=== PATIENT | male | born 1950 | race Caucasian/White ===

== ENCOUNTER 2018-08-28 09:07 | Emergency (ER) | payer BC ==
[2018-08-28 09:20] VITALS: BP 149/86
--- NOTE | 2018-08-28 10:13 | UC ---
Lower Extremity/Ankle HPI - HPI Summary HPI Summary: Pt presents to for evaluation of injury to left foot. Pt states yesteday was unloading lawn tractor from trailer. the trailer tilted and tractor landed on left foot. No other injuries. No knee or hip pain. Pt denies paresthesia. Pt took Motrin yesterday. No analgesia today. Pt with pain with weightbearing - little pain with rest. Pt with abraison medial aspect left foot. No active bleeding. mild bruising at side of abraison. Pt does not know when last tdap. Medications reviewed - History of Current Complaint Chief Complaint: UCLowerExtremity Stated Complaint: LT FOOTINJURY Time Seen by Provider: 08/28/18 09:59 Hx Obtained From: Patient Severity Currently: Moderate - with ambulation = 8, rest=2 Pain Intensity: 8 - Allergies/Home Medications Allergies/Adverse Reactions: Allergies Allergy/AdvReac Type Severity Reaction Status Date / Time No Known Allergies Allergy Verified 08/28/18 09:20 Home Medications: Home Medications Ibuprofen 600 mg PO 08/28/18 [History] PMH/Surg Hx/FS Hx/Imm Hx Previously Healthy: Yes Cardiovascular History: Hypertension - Surgical History Surgical History: Yes Surgery Procedure, Year, and Place: tonsillectomy in childhood - Family History Known Family History: Positive: Hypertension, Non-Contributory - Social History Occupation: Retired Lives: With Family Alcohol Use: Daily Substance Use Type: None Smoking Status (MU): Light Every Day Tobacco Smoker Type: Cigarettes Review of Systems All Other Systems Reviewed And Are Negative: Yes Constitutional: Positive: Negative Skin: Positive: Bruising, Other - abraison left foot Musculoskeletal: Positive: Other: - left foot Neurological: Negative: Paresthesia, Numbness Physical Exam - Summary Physical Exam Summary: Vital Signs Reviewed: Yes AOx3, no distress, Eyes: Conjunctiva Clear ENT: Hearing grossly normal Neck: Positive: Supple Respiratory: Positive: No respiratory distress, No accessory muscle use Cardiovascular: 2+ DP, PT CBt < 2 sec Musculoskeletal Exam: + flex/ext knee, ankle + TTP base 1st MT no crepituse + abraison and ecchymosis at same. No pain ankle, tarsals, other metatarsals Neurological: Positive: Alert, + sensation throughout + gross sensation throughout Psychological: Positive: Normal Response To Family Skin: Positive: no rash, no ecchymosis, non suturable Triage Information Reviewed: Yes Vital Signs: Initial Vital Signs Temp 100.0 F 08/28/18 09:15 Pulse 95 08/28/18 09:15 Resp 18 08/28/18 09:15 BP 149/86 08/28/18 09:15 Pulse Ox 95 08/28/18 09:15 Diagnostics - Radiology No standard instances Radiology Interpretation Completed By: Radiologist - Patient Name: JASON VALLECILLO Medical Record#: [id number] Ordering Physician: Abbi Ramirez NP Acct.#: [id number] : 1950 Age: 67 Sex: M Location: [facility] Exam Date: 08/28/18929 ADM Status: REG ER Order Information: FOOT LEFT 3+ VWS Accession Number: [id number] CPT: 71546 HISTORY: pain after injury . COMPARISONS: None relevant available at the time of dictation. VIEWS: 3, Frontal, lateral, and oblique views of the left foot FINDINGS: BONE DENSITY: Normal. BONES: There is a chronic fracture versus accessory ossicle of the base of the fifth metatarsal. There are plantar calcaneal enthesophytes. 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 ALIGNMENT: There is no dislocation. SOFT TISSUES: Unremarkable. OTHER FINDINGS: None. IMPRESSION: CHRONIC FRACTURE VERSUS HISTORY OSSICLE OF THE BASE OF THE FIFTH METATARSAL. NO ACUTE OSSEOUS INJURY. IF SYMPTOMS PERSIST, RECOMMEND REPEAT IMAGING <Electronically signed by Patrice Young MD in OV> 08/28/18948 Dictated By: Patrice Young MD Dictated Date/Time: 08/28/18948 Transcribed Date/Time: 08/28/18947 Copy to: CC:[facility]; Abbi Ramirez NP; Bel Argueta MD Imaging - [facility] - [facility] - [facility] [address] [address] ph ([phone]) ph ([phone]) ph ([phone]) This report is only to be considered final once signed by the Provider(s ) as displayed in the "<Electronically Signed by >" field (s). Absence of a signature indicates the report is in a draft status and still needs to be finalized. In the event this document was created by someone other than the signing Provider, the individual initiating the document will be listed in the "Entered by:" or "Dictated by:" ceja. Re-Evaluation - Re-Evaluation First Eval Comment: reviewed imaging - no pain over base 5th MT as noted on imaging Lower Extremity Course/Dx - Course Course Of Treatment: Pt with pain with palpapation, walking, abaison, and ecchymosis base 5th MT left foot after lawnmower landed on it yesterday. No other injuries No analgesia today VSS no crepitus will image hard sole shoe motrin/apap ice elevate crutches (pt has) wound care pt declined tdap today Pt's BP elevated - h/o diagnosis - Differential Dx/Diagnosis Provider Diagnosis: Contusion of left foot Discharge - Sign-Out/Discharge Documenting (check all that apply): Patient Departure All imaging exams completed and their final reports reviewed: Yes - Discharge Plan Condition: Stable Disposition: HOME Patient Education Materials: Foot Contusion (ED) Referrals: Bel Argueta MD [Primary Care Provider] - [facility] [Provider Group] Additional Instructions: -apply ice (20 min at a time) every 2-3 hours for the next 2 days -use crutches until you can walk normally without a limp -Elevate your leg - this will help with swelling and pain - Alternate ibuprofen (advil, Motrin) 600mg and tylenol every 3 hours for pain. Take with food. Do NOT take for more than 4-5 days -Contact your doctor to schedule a follow-up this week. If you are unable to see your primary doctor, you may schedule a follow-up with the sports medicine group - Billing Disposition and Condition Condition: STABLE Disposition: Home
== END 2018-08-28 10:21 | disposition home or self-care (01) ==
LOC: UCEAST 09:07
DX: S90.32XA Contusion of left foot, initial encounter (principal); F17.210 Nicotine dependence, cigarettes, uncomplicated; X58.XXXA Exposure to other specified factors, initial encounter; Y92.9 Unspecified place or not applicable
CPT/HCPCS: 99211; G0463

== ENCOUNTER 2020-12-09 20:28 | Observation (INO) ==
[2020-12-09 20:54] LABS: ABS Eosinophils 0.1 10^3/ul (0-0.6); ABS Monocytes 0.6 10^3/ul (0-0.8); ABS Neutrophils 4.4 10^3/ul (1.5-7.7); Eosinophil % 0.9 %; Hematocrit 43 % (42-52); Hemoglobin 14.7 g/dL (14.0-18.0); Lymphocyte % 28.5 %; Mean Corpuscular HGB Conc 34 g/dL (31-36); Mean Corpuscular Hemoglobin 34 pg (27-31); Mean Corpuscular Volume 98 fL (80-94); Mean Platelet Volume 8.3 fL (7.4-10.4); Platelet Count 202 10^3/uL (150-450); Red Blood Count 4.36 10^6 /uL (4.18-5.48); Red Cell Distribution Width 14 % (10-15); White Blood Count 7.1 10^3/uL (3.5-10.8)
[2020-12-09 21:05] LABS: INR 0.97 (0.86-1.15)
[2020-12-09 21:11] LABS: Albumin 4.3 g/dL (3.2-5.2); Albumin/Globulin Ratio 1.6 (1-3); Calcium 9.6 mg/dL (8.6-10.3); EGFR African American 77.3 (>60); EGFR Non-African American 63.9 (>60); Globulin 2.7 g/dL (2-4); Potassium 4.3 mmol/L (3.5-5.0); Total Bilirubin 0.4 mg/dL (0.2-1.0)
[2020-12-09 21:14] LABS: Troponin I 0.01 ng/mL (<0.03)
[2020-12-10] MEDS ORDERED: hydrALAZINE 20 mg/ml 1 ML Vial IV IV SLOW PU PRN (02:37)
[2020-12-10] MEDS ORDERED: Enoxaparin 40 MG/0.4 ML SYR SUBCUT SCH (03:00)
[2020-12-10] MEDS ORDERED: SPIRIVA Respimat (tiotropium) 2.5 mcg/inh Inhaler INH SCH ×2 (09:00)
[2020-12-10 14:34] VITALS: BP 173/87
== END 2020-12-10 15:39 | disposition home or self-care (01) ==
LOC: ED 20:28 → SUATTDRO 12-10 01:42 → INTOOBSV 12-10 01:42 → MEDTELE 12-10 01:42
PROVIDERS: ADMIT Student in an Organized Health Care Education/Training Program; ATTEND Internal Medicine

== ENCOUNTER 2024-01-09 10:28 | Inpatient (IN) ==
[2024-01-09 10:58] LABS: ABS Basophils 0.1 10^3/uL (0.0-0.1); ABS Eosinophils 0.2 10^3/uL (0.0-0.5); ABS Lymphocytes 1.9 10^3/uL (1.0-4.8); ABS Monocytes 0.6 10^3/uL (0.0-1.1); ABS Neutrophils 6.2 10^3/uL (1.5-7.6); Eosinophil % 1.8 %; Hemoglobin 11.5 g/dL (13.2-16.3); Lymphocyte % 21.8 %; Mean Corpuscular Hemoglobin 31.3 pg (27-33); Mean Corpuscular Hgb Conc 31.9 g/dL (31-36); Mean Corpuscular Volume 98.3 fL (80-97); Mean Platelet Volume 7.7 fL (7.5-11.2); Platelet Count 240 10^3/uL (150-450); Red Blood Count 3.66 10^6/uL (4.06-5.63); Red Cell Distribution Width 17.2 % (12-17); White Blood Count 8.9 10^3/uL (3.6-10.2)
[2024-01-09 11:29] LABS: INR 1.13 (0.85-1.14)
[2024-01-09 11:49] LABS: Albumin 4.3 g/dL (3.2-5.2); Albumin/Globulin Ratio 1.7 (1-3); Calcium 9.2 mg/dL (8.6-10.3); Creatinine, Serum 0.91 mg/dL (0.67-1.17); Globulin 2.6 g/dL (2-4); Potassium 4.7 mmol/L (3.5-5.0); Total Bilirubin 0.5 mg/dL (0.2-1.0); Total Protein 6.9 g/dL (6.4-8.9); eGFR CKD-EPI 90.1 (>60)
[2024-01-09 12:25] LABS: High Sensitivity Troponin 1 Hr 30 pg/mL (<20)
[2024-01-09] MEDS: Iodixanol (CONTRAST) 320 MG/ML 100 ML SDV IV ONE (13:27)
[2024-01-09] MEDS: Albuterol/Ipratropium NEB.SOL (2.5/0.5 MG) 3 ML NEB.SOLN INH ONE (15:44)
[2024-01-09] MEDS: Heparin 5000 UNITS/ML 1 mL VIAL SUBCUT ONE (20:01)
[2024-01-10] MEDS: Levalbuterol HFA INHALER MDI INH PRN (04:00)
[2024-01-10 07:01] LABS: Total Protein 6.1 g/dL (6.4-8.9)
[2024-01-10] MEDS: SPIRIVA Respimat (tiotropium) 2.5 mcg/inh Inhaler INH SCH (07:14)
[2024-01-10] MEDS ORDERED: Albuterol/Ipratropium NEB.SOL (2.5/0.5 MG) 3 ML NEB.SOLN INH PRN (07:19)
[2024-01-10] MEDS: Multivitamins/Minerals TAB PO SCH (09:16)
[2024-01-10] MEDS: Sulfur Hexaflouride MICROSPHR 25 MG VIAL IV PRN (09:18)
[2024-01-10 20:36] LABS: C Reactive Protein 8.19 mg/L (<8.01)
[2024-01-10] MEDS: Enoxaparin 80 MG/0.8 ML SYR SUBCUT SCH (20:42)
[2024-01-10] MEDS: Adenosine 3 MG/ML 2 ml VIAL (6 mg) IV PUSH ONE ×2 (23:13)
[2024-01-11] MEDS: dilTIAZem 30 MG TAB PO SCH (00:27)
[2024-01-11 08:45] LABS: ABS Basophils 0.1 10^3/uL (0.0-0.1); ABS Eosinophils 0.1 10^3/uL (0.0-0.5); ABS Lymphocytes 1.5 10^3/uL (1.0-4.8); ABS Monocytes 0.4 10^3/uL (0.0-1.1); ABS Neutrophils 4.9 10^3/uL (1.5-7.6); Eosinophil % 1.5 %; Hematocrit 34.3 % (38-53); Hemoglobin 11.2 g/dL (13.2-16.3); Lymphocyte % 21.4 %; Mean Corpuscular Hemoglobin 31.6 pg (27-33); Mean Corpuscular Hgb Conc 32.6 g/dL (31-36); Mean Corpuscular Volume 96.8 fL (80-97); Mean Platelet Volume 7.5 fL (7.5-11.2); Platelet Count 243 10^3/uL (150-450); Red Blood Count 3.54 10^6/uL (4.06-5.63); Red Cell Distribution Width 16.9 % (12-17)
[2024-01-11 09:27] LABS: Calcium 9.1 mg/dL (8.6-10.3); Creatinine, Serum 0.84 mg/dL (0.67-1.17); Magnesium 1.6 mg/dL (1.9-2.7); Potassium 4.6 mmol/L (3.5-5.0); eGFR CKD-EPI 93.2 (>60)
[2024-01-11] MEDS: Digoxin IV 0.5 MG/2 ML AMP (0.25 MG/ML) IV SLOW PU ONE ×3 (11:04→15:05)
[2024-01-11 11:24] LABS: Activated Partial Thrombo Time 39.7 seconds (26.0-38.0); INR 1.21 (0.85-1.14)
[2024-01-11] MEDS: Magnesium Sulf 4 GM/100 ML IV 4,000 MG/100 ML BAG IVPB ONE (11:40)
[2024-01-11] MEDS: Polyethylene Glycol 3350 17 GM PACKET PO PRN (12:46)
[2024-01-12] MEDS: NS 0.9% 1000 ml BAG 1,000 ML IV SCH (07:31)
[2024-01-12 07:37] LABS: Calcium 8.7 mg/dL (8.6-10.3); Creatinine, Serum 0.85 mg/dL (0.67-1.17); Magnesium 1.8 mg/dL (1.9-2.7); Potassium 4.5 mmol/L (3.5-5.0); eGFR CKD-EPI 92.9 (>60)
[2024-01-12] MEDS ORDERED: Flumazenil 0.5 mg/5 ml 0.1 MG/ML 5 ml VIAL ONE (08:34)
[2024-01-12] MEDS ORDERED: Naloxone 0.4 mg VIAL 0.4 mg/ml 1 ml VIAL ONE (08:34)
[2024-01-12] MEDS ORDERED: fentaNYL 100 mcg/2 ml 50 MCG/ML VIAL ONE ×3 (08:34→11:54)
[2024-01-12] MEDS ORDERED: Midazolam 5 mg/5 ml VIAL 1 mg/ml 5 ml VIAL (5 mg) ONE ×2 (08:35→10:45)
[2024-01-12] MEDS: fentaNYL 100 mcg/2 ml 50 MCG/ML VIAL IV SLOW PU ONE (10:16)
[2024-01-12] MEDS: Midazolam 10 mg/10 ml VIAL 1 mg/ml 10 ml VIAL (10 mg) IV SLOW PU ONE (10:18)
[2024-01-12] MEDS: Magnesium Sulfate 2 gm BAG 2 GM/50 ML BAG IVPB ONE (10:23)
[2024-01-12] MEDS ORDERED: nitroGLYCERIN DRIP 25,000 MCG/250 ML BTL ONE (10:45)
[2024-01-12] MEDS ORDERED: Heparin 2 UNITS/ML 1000 mls 2,000 ML IV ONE (10:45)
[2024-01-12] MEDS ORDERED: Heparin 1,000 UNIT/ML 10 ml (10,000 UNITS) CATHLAB/DIALYSIS ONE (10:45)
[2024-01-12] MEDS ORDERED: Iohexol 350 (CONTRAST) 200 ML MDV IV ONE (10:46)
[2024-01-12] MEDS ORDERED: Lidocaine 1% MPF 5 ML VIAL ONE (10:46)
[2024-01-12] MEDS ORDERED: niCARdipine 0.1MG/ML IVPREMIX 20 MG/200 ML BAG IV ONE (10:54)
[2024-01-12 11:52] LABS: POC SO2 90 %
[2024-01-12 11:52] LABS: POC SO2 57 %
[2024-01-12 14:11] LABS: Lactate Dehydrogenase, BF 84 U/L
[2024-01-12 14:44] LABS: Fluid Type, Protein, Total Pleural Fluid
[2024-01-12] MEDS: Enoxaparin 80 MG/0.8 ML SYR SUBCUT SCH (22:17)
[2024-01-13 07:26] LABS: Calcium 8.6 mg/dL (8.6-10.3); Creatinine, Serum 0.82 mg/dL (0.67-1.17); Magnesium 1.8 mg/dL (1.9-2.7); Potassium 4.9 mmol/L (3.5-5.0); eGFR CKD-EPI 93.9 (>60)
[2024-01-13] MEDS: Adenosine 3 MG/ML 2 ml VIAL (6 mg) IV PUSH ONE (07:42)
[2024-01-13] MEDS: Magnesium Sulfate 2 gm BAG 2 GM/50 ML BAG IVPB ONE (09:42)
[2024-01-13] MEDS ORDERED: Sulfur Hexaflouride MICROSPHR 25 MG VIAL IV PRN (11:01)
[2024-01-13 14:34] LABS: CKMB ng/mL 2.1 ng/mL (0.6-6.3)
[2024-01-14 05:37] LABS: ABS Basophils 0.1 10^3/uL (0.0-0.1); ABS Eosinophils 0.4 10^3/uL (0.0-0.5); ABS Monocytes 0.7 10^3/uL (0.0-1.1); ABS Neutrophils 6.2 10^3/uL (1.5-7.6); Eosinophil % 4.3 %; Hematocrit 33.1 % (38-53); Hemoglobin 10.6 g/dL (13.2-16.3); Lymphocyte % 21.6 %; Mean Corpuscular Hgb Conc 32.2 g/dL (31-36); Mean Corpuscular Volume 96.4 fL (80-97); Mean Platelet Volume 7.4 fL (7.5-11.2); Platelet Count 305 10^3/uL (150-450); Red Blood Count 3.43 10^6/uL (4.06-5.63); Red Cell Distribution Width 16.8 % (12-17); White Blood Count 9.4 10^3/uL (3.6-10.2)
[2024-01-14 06:06] LABS: Calcium 9.1 mg/dL (8.6-10.3); Creatinine, Serum 0.77 mg/dL (0.67-1.17); Magnesium 1.7 mg/dL (1.9-2.7); Potassium 4.4 mmol/L (3.5-5.0); eGFR CKD-EPI 95.7 (>60)
[2024-01-15 14:45] VITALS: BP 104/67
== END 2024-01-15 16:25 | disposition home or self-care (01) | DRG 186 ==
LOC: ED 10:28 → EDHOLD 10:28 → SUATTDRO 18:01 → MEDTELE 22:07 → SUATTDRO 01-11 12:00
PROVIDERS: ADMIT Family Medicine; ATTEND Hospitalist